=== PATIENT | female | born 1985 | race Caucasian/White ===

== ENCOUNTER 2025-06-27 07:14 | Emergency (ER) | payer OTHER, SELFPAY ==
--- OUTSIDE RECORDS SUMMARY | 2017-11-20 05:18 | XMS_ITS | Continuity of Care Document ---
Author Organization [facility] Address [address] [place] [id number] Phone Care Team Providers Care Traffic Supervisor Name Role Phone Unavailable Unavailable Unavailable Medications Medication Instructions Dosage Effective Dates (start - stop) Status Comments ropinirole 2 mg tablet take 1 tablet by oral route every day 2 MG - Active Effexor XR 150 mg capsule,extended release take 1 capsule by oral route every day 150 MG - Active Eliquis 5 mg tablet take 1 tablet by ora l route 2 times every day 5 MG - Active Vistaril 25 mg capsule take 1 capsule by oral route every day at bedtime as needed - Active Seroquel 50 mg tablet take 1 tablet by o ral route every day 50 MG - Active prazosin 1 mg capsule take 1 capsule by oral route 2 times every day 1 MG - Active melatonin 3 mg tablet Take 1 tablet by m outh at bedtime as needed - Active loratadine 10 mg tablet take 1 tablet by oral route every day as needed - Active Advance Directives Directive Yes / No Effective Date File Name No Information Encounters Encounter Description Practice Location Reason(s) For Visit Diagnoses Date Provider [facility], [address] [place] [address], [id number] , tel:[phone] [facility] No Information [phone] No Information [facility], [address] [place] [address], [id number] , tel: [phone] [facility] Opioid dependence, uncomplicated 8 No Information [facility], [address] [place] [address], [id number] , [place] tel:[phone] [facility] Letter for where she lives (chief complaint)n erve pain (chief complaint)r efills (chief complaint)A llergies (chief complaint) Bipolar depressionHx pulmonary embolismNeuropathyTobacco abuseVaginal dischargeNon-seasonal allergic rhinitis due to other allergic triggerAdjustment insomnia 8 Christopher Hernandez. [address] [id number] [place], [place], [address], [place]. tel:[phone] [facility], [address] [place] [address], [id number] , [place] tel:[phone] [facility] follow up lab (chief complaint) Body mass index (BMI) 23.0-23.9, adultPositive RPR testVaginal dischargeTobacco abuseNeuropathy 7 Christopher Hernandez. [address] [id number] [place], [place], [address], [place]. tel:[phone] [facility], [address] [place] [address], [id number] , [place] tel:[phone] [facility] Opioid dependence, uncomplicated 7 No Information [facility], [address] [place] [address], [id number] , [place] tel:[phone] [facility] refill for effexor and ropinirole (chief complaint)l ab follow up (chief complaint) Opioid dependence, uncomplicatedBody mass index (BMI) 23.0-23.9, adultPositive RPR testBipolar depression 7 Christopher Hernandez. [address] [id number] [place], [place], [address], [place]. tel:[phone], [id number] , tel: [phone] [facility] Opioid use disorder, severe No Information [facility], [address], [place], [id number] , [place] tel: [phone] [facility] establish provider/ne eds meds refilled /INR (chief complaint) Body mass index (BMI) 22.0-22.9, adultHeroin abuseExposure to STDVaginal dischargeFlu vaccine needHx of deep venous thrombosisHx pulmonary embolismBipolar depression Christopheryosvany Gonzales. [address] [id number] [place], [place], [address], [place]. tel:[phone] Family History Family Member Type Diagnosis Age At Onset No Information Immunizations Vaccine Date Status Comments Influenza, injectable, quadrivalent, preservative free, 3 yrs or older not administered Source: New Immuniz ation Record Payers Payer name Insurance type Covered republican ID Authoriza tion(s) Formerly [facility] [id number] [facility] [id number] [facility] [id number] [facility] [id number] Social History Type Description Quantity Date Captured Comments Alcohol Use Details Unknown Caffeine Use Details Unknown Tobacco Use Status Smoking Status No Information Sex Female Sexual Orientation Bisexual Chief Complaint And Reason For Visit No Information Plan Of Treatment Date Type Action Status Goal Dietary management education , guidance, and counseling completed Goal Tobacco cessation counseling completed Goal Dietary management education , guidance, and counseling completed Goal Tobacco cessation counseling completed Goal Tobacco cessation counseling completed Referral Ordered: EMG Needle 1 Extremity Appointment date/timeframe: 09/19/2017 [id number] Ordered: Referrals: Hematology. Consult Appointment date/timeframe: 08/29/2017 ordered History Of Present Illness Encounter Date Complaint History Of Prese nt Illness Letter for where she lives The s ymptoms are reported as being . The symptoms occur . tter regarding medications sent with patient refills The symptoms are reported as being . The symptoms occur . meds refilled Allergies The patient pres ents with post nasal drainage. Symptoms are constant, mild and unchanged. The symptoms are felt to be related to exposure to dust and season change. There is no history of asthma, eczema and allergy desensitization. The allergic symptoms are worsened by cold air, dust and heat. Denies relieving factors. The patient is also experiencing cough, nasal congestion, nasal drainage, post nasal drainage and sneezing. The patient denies chest tightness, coryza, dizziness, ear pain, headache, hoarseness, nausea, pharyngitis, reddened eyes, reflux, sinus infections, sinus pain, tearing and urticaria. nerve pain The symptoms are reported as being . The symptoms occur . emg ordered follow up lab The symptoms are reported as being . The symptoms occur . RPR 1:1 but reflex negativeNeuropathy/nerve related pain- EMGBacterial Vaginosis lab follow up The symptoms are reported as being . The symptoms occur . Discussed labs and she is aware of hep cWas not aware of possible syphilis exposure, will order Treponema Pallidum to confirm, DW Dr Campa [facility] refill for effexor and ropinirol e The symptoms are reported as being . The symptoms occur . Meds refilled establish provider/n eeds meds refilled /INR The symptoms are reported as being . The symptoms occur . [facility] Heroin abuseFilter Placed due to DVTs and hx PE/dvt after [id number] is the patients only hx of dvt-This was almost 2 years agoWas on Coumadin but has missed some doses, states she was on 15 mg coumadinMissed Coumadin Saturday and SaturdayWas supposed to have FU Ct Per patient and missed it in rehab Instructions Date Instruction Additional Infor belle Dietary management e ducation, guidance, and counseling Related to Body mass index (BMI) 23.0-23.9, adult Giving encouragement to exercise Related to Body mass index (BMI) 23.0-23.9, adult Dietary management e ducation, guidance, and counseling Related to Body mass index (BMI) 23.0-23.9, adult Giving encouragement to exercise Related to Body mass index (BMI) 23.0-23.9, adult Assessments Type Assessment Date No Information
--- OUTSIDE RECORDS SUMMARY | 2023-08-29 19:00 | XMS_ITS | Continuity of Care Document ---
Author Organization [facility] Address [address] [place] [address] Phone Care Team Providers Care Interactive Designer Name Role Phone Johanny Briceño Unavailable Unavailable Allergies, Adverse Reactions, Alerts Substance Reaction Status Criticality No Known Allergies Active No Inform ation Medications Medication Instructions Dosage Effective Dates (start - stop) Status Comments quetiapine 50 mg tablet take 1 tablet by oral route every bedtime 50 MG - Active gabapentin 400 mg capsule take 1 capsule by oral route 4 times every day 400 MG - Active Procedures Procedure Date Acute Detox Field Support Technician Acute Detox Field Support Technician Acute Detox Field Support Technician DRUG TEST PRSMV DIR OPT OBS ROUTINE VENIPUNCTURE Acute Detox Field Support Technician DRUG TEST PRSMV DIR OPT OBS URINE TEST ASSAY OF BREATH ETHANOL Acute Detox Field Support Technician Acute Detox Field Support Technician Acute Detox Field Support Technician Acute Detox Field Support Technician Acute Detox Field Support Technician Advance Directives Directive Yes / No Effective Date File Name No Information Encounters Encounter Description Practice Location Reason(s) For Visit Diagnoses Date Provider Providers Copied on Encounter [facility], [address], [place], [id number], [place] tel:[phone] [facility] No Information Navarro Orlando. [address] [place] [address], [id number], [place]. tel:[phone] [facility], [address] [place] [address], [id number], [place] tel:[phone] [facility] No Information Klidas Johanny. [address], [place], [id number], [place]. tel:[phone] [facility], [address], [place], [id number], [place] tel:[phone] [facility] No Information Klidas Johanny. [address], [place], [id number], [place]. tel:[phone] [facility], [address], [place], [id number], [place] tel:[phone] [facility] No Information Klidas Johanny. [address], [place], [id number], [place]. tel:[phone] [facility], [address], [place], [id number], [place] tel:[phone] [facility] Opioid dependence with withdrawal Pavlock DO Max. [address], [place], [id number], [place]. tel:[phone] [facility], [address], [place], [id number], [place] tel:[phone] [facility] Opioid dependence with withdrawal Pavlock DO Max. [address], [place], [id number], [place]. tel:[phone] [facility], [address], [place], [id number], [place] tel:[phone] [facility] Opioid dependence with withdrawal Pavlock DO Max. [address], [place], [id number], [place]. tel:[phone] [facility], [address], [place], [id number], [place] tel:[phone] [facility] heroin dependence (chief complaint) Opioid dependence with withdrawal Sebastian Echevarria. [address], [place], [id number], [place]. tel:[phone] [facility], [address], [place], [id number], [place] tel:[phone] [facility] Opioid dependence with withdrawal Pavlock DO Max. [address], [place], [id number], [place]. tel:[phone] [facility], [address], [place], [id number], [place] tel:[phone] [facility] Opioid dependence with withdrawal Pavlock DO Max. [address], [place], [id number], [place]. tel:[phone] [facility], [address] [place] [address], [id number], [place] tel:[phone] [facility] Opioid dependence with withdrawal Pavlock DO Max. [address], [place], [id number], [place]. tel:[phone] [facility], [address], [place], [id number], [place] tel:[phone] [facility] No Information Pavlock DO Max. [address] [place] [address], [id number], . tel:[phone] Family History Family Member Type Diagnosis Age At Onset No Information Payers Payer name Insurance type Covered libertarian ID Authorfidelinaa timeghan(s) [employer] [id number] Social History Type Description Quantity Date Captured Comments Sex Female Smoking Status No Information Sexual Orientation Straight or heterosexual Gender Identity Female Chief Complaint And Reason For Visit No Information Reason For Referral Reason For Referral No Information History Of Present Illness Encounter Date Complaint History Of Prese nt Illness heroin dependence 34 year old fe male checked in to detox yesterday and reports last using heroin yesterday. She typically injects 1g/day and has been using opiates for 12 years. She has attended detox 5 times prior with the last being 2 months ago.surgical hx- c-secallergies- nonemeds- jonathan, seroqueltobacco- 1/2 ppdalcohol- noneplans upon completing detox- inpatient Functional Status Date Functional Assessmen t No Information Instructions Date Instruction Additional Infor belle Encourage PO fluids - Related to Opioid dependence with withdrawal Assessments Type Assessment Date No Information Patient Care Teams Name Effective Dates (start - stop) Status Members No Information
[2025-06-27 07:22] VITALS: BP 106/69; PULSE 120; TEMP 37.2; O2SAT 95; BMI 23.0
--- NOTE | 2025-06-27 07:35 | ED.GENADUL1 ---
HPI HPI - General Adult General Chief complaint: Fever Stated complaint: FEVER, CHILLS, SORE THROAT Time Seen by Provider: 06/27/25 07:21 Source: patient Mode of arrival: walk-in History of Present Illness HPI narrative: cc - fever and flulke symptoms Yesterday the patient developed fever, chills, body aches. Temp improved after taking tylenol - last dose was this morning. Related Data Home Medications ?Medication ?Instructions ?Recorded ?Confirmed buprenorphine 2 mg-naloxone 0.5 mg 2 film buccal DAILY 06/27/25 06/27/25 sublingual film (Suboxone) gabapentin 800 mg tablet 800 mg PO TID 06/27/25 06/27/25 Previous Rx's ?Medication ?Instructions ?Recorded amoxicillin 875 mg tablet 875 mg PO BID 10 days #20 tabs 06/27/25 Allergies Allergy/AdvReac Type Severity Reaction Status Date / Time No Known Drug Allergies Allergy Verified 06/27/25 07:21 Opioid HPI Opioid Management Most Recent Opioid Data: Last Pain Scale 7 Today, 07:30 PFSH PFSH Social History Little interest or pleasure in doing things: not at all Feeling down, depressed, or hopeless: not at all Exam Narrative Exam Narrative: Nurses notes and vital signs reviewed and patient is not hypoxic. afebrile General: Well-appearing and in no apparent distress. Skin: Warm, dry, no pallor noted. No rash. Head: Normocephalic, atraumatic. Neck: Supple, non-tender. Tender anterior upper cervical lymphadenopathy. No meningismus. Eye: Pupils are equal, round and EOMI. No scleral icterus. Ears, Nose, Mouth, and Throat: TM are clear, no nasal mucosal hypertrophy. Moderate posterior oropharynx erythema with some exudate, uvula is mid-line. Oral mucosa is moist Cardiovascular: Tachycardia. Respiratory: No accessory muscle use or respiratory distress. Lungs are clear to auscultation, no wheezing, rales or rhonchi Musculoskeletal: normal ROM GI: Abdomen is soft, non-distended. Normal bowel sounds. No tenderness to palpation. No rebound, guarding, or rigidity noted. Neurological: A&O x4. No cranial nerve dysfunction observed. No truncal ataxia. Moves all extremities. Sensation intact. Psychiatric: Cooperative and interactive. Normal mood and affect. Constitutional Vital Signs, click to edit/add: Last Vital Signs Temp 98.9 F 06/27/25 07:22 Pulse 120 H 06/27/25 07:22 Resp 18 06/27/25 07:22 BP 106/69 06/27/25 07:22 Pulse Ox 95 06/27/25 07:22 O2 Del Method Room Air 06/27/25 07:22 Course Vital Signs Vital signs: Vital Signs Temperature 98.9 F 06/27/25 07:22 Pulse Rate 120 H 06/27/25 07:22 Respiratory Rate 18 06/27/25 07:22 Blood Pressure 106/69 06/27/25 07:22 Pulse Oximetry 95 06/27/25 07:22 Oxygen Delivery Method Room Air 06/27/25 07:22 Temperature 98.9 F 06/27/25 07:22 Pulse Rate 120 H 06/27/25 07:22 Respiratory Rate 18 06/27/25 07:22 Blood Pressure 106/69 06/27/25 07:22 Pulse Oximetry 95 06/27/25 07:22 Oxygen Delivery Method Room Air 06/27/25 07:22 Medical Decision Making MDM Narrative Medical decision making narrative: Swabs obtained for strep, influenza and COVID. Pt tested positive for strep pharyngitis. She was informed of result and discharged home with prescription for amoxicillin. She was instructed to take tylenol and motrin for pain. PCP follow up as needed or ED return if she worsens Lab Data Lab results reviewed: Yes I reviewed the patient's lab results Labs: Lab Results 06/27/25 Range/Units 07:28 Influenza Type A Ag Negative Influenza Type B Ag Negative SARS-CoV-2 Ag (CV2AG) Negative (NEGATIVE) Streptococcus Screen Positive A Discharge Plan Discharge Chief Complaint: Fever Clinical Impression: Strep pharyngitis Patient Disposition: Home, Self-Care Time of Disposition Decision: 07:46 Prescriptions / Home Meds: New amoxicillin 875 mg tablet 875 mg PO BID 10 Days Qty: 20 0RF No Action buprenorphine-naloxone [Suboxone] 2-0.5 mg film 2 film buccal DAILY Rx Instructions: place 1 strip/tab under (each) side of tongue gabapentin 800 mg tablet 800 mg PO TID Print Language: Hebrew Instructions: Strep Throat (ED) Discharge Date/Time: 06/27/25 07:56
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
--- OUTSIDE RECORDS SUMMARY | 2025-06-27 07:50 | XMS_ITS | Clinical Summary ---
Author Organization [employer] s tem Address [id number] [place] [address] Care Team Providers Care Project Eng Name Role Phone Akira Silviano Primary Care Provider [phone] Allergies No known active allergies Medications MedicationSigDispense QuantityRefillsLast FilledStart DateEnd DateStatus buprenorphine-naloxone (SUBOXONE) 8-2 mg per SL tablet Place 2 tablets under the tongue in the morning.Active cyclobenzaprine (FLEXERIL) 10 mg tablet Take 1 tablet (10 mg total) by mouth 2 (two) times a day as needed for muscle spasms.5Active dicyclomine (BENTYL) 20 mg tablet Take 1 tablet (20 mg total) by mouth every 6 (six) hours.5Active diphenhydrAMINE (BENADRYL) 25 mg capsule Take 1 capsule (25 mg total) by mouth every 6 (six) hours as needed.02/25/2025 Active diphenhydrAMINE (SOMINEX) 25 mg tablet Take 1 tablet (25 mg total) by mouth nightly as needed for sleep.03/13/2025 Active folic acid (FOLVITE) 1 mg tablet Take 1 tablet (1 mg total) by mouth in the morning and 1 tablet (1 mg total) before bedtime.5Active docusate sodium (COLACE) 100 mg capsule Take 1 capsule (100 mg total) by mouth 2 (two) times a day as needed for constipation.5Active gabapentin (NEURONTIN) 400 MG tablet Take 1 tablet (400 mg total) by mouth in the morning and 1 tablet (400 mg total) at noon and 1 tablet (400 mg total) in the evening and 1 tablet (400 mg total) before bedtime.5Active hydrOXYzine (ATARAX) 25 mg tablet Take 1 tablet (25 mg total) by mouth every 4 (four) hours as needed for itching. 03/13/2025tive ibuprofen (MOTRIN) 600 mg tablet Take 1 tablet (600 mg total) by mouth every 6 (six) hours as needed.03/13/2025 Active LORazepam (ATIVAN) 1 mg tablet Take 1 tablet (1 mg total) by mouth every 6 (six) hours as needed for anxiety. 03/15/2025tive lurasidone (LATUDA) 20 mg tablet Take 1 tablet (20 mg total) by mouth in the morning.03/15/2025tive melatonin 10 mg tablet extended release Take 10 mg by mouth nightly.03/13/2025tive mirtazapine (REMERON) 7.5 mg tablet Take 1 tablet (7.5 mg total) by mouth nightly.03/13/2025tive OLANZapine zydis (ZyPREXA) 5 mg disintegrating tablet Dissolve 1 tablet (5 mg total) on tongue nightly.03/13/2025tive ondansetron ODT (ZOFRAN ODT) 4 mg disintegrating tablet Dissolve 1 tablet (4 mg total) on tongue 3 (three) times a day as needed for nausea. TAKE 1 TABLET BY MOUTH 3 TIMES DAILY NEEDED FOR NAUSEA OR VOMITING 03/28/2025tive QUEtiapine (SEROquel) 50 mg tablet Take 2 tablets (100 mg total) by mouth nightly.02/25/2025tive sulfamethoxazole-trimethoprim (BACTRIM DS) 800-160 mg per tablet Take 1 tablet by mouth in the morning and 1 tablet before bedtime.03/13/2025 Active traZODone (DESYREL) 100 mg tablet Take 1 tablet (100 mg total) by mouth nightly.03/13/2025tive Active Problems ProblemNoted DateDiagnosed DateStrep ebcumabkstm84/07/2025Gastroesophageal reflux disease without vshhmrpadfq43/28/2023Hepatitis 07/05/2015 Encounters DateTypeDepartmentCare YwjeHwsdxbakmsm52/07/2025 8:17 AM EDT - 04/03/2025 12:00 PM EDTHospital Encounter [facility] [address] [place] [address] Elodia Barnett MD Pillai, Kanchan M, MD Strep pharyngitis (Primary Dx) Discharge Disposition: Left Against Medical Advice or Discontinued Care 04/01/2025Travelfrom Last 3 Months Immunizations ImmunizationAdministration DatesNext HesQYP12,06/21/1988,05/02/1988DTaP, Shvvjapgdec37/27/1989Hib (PRP-OMP)06/21/1989Influenza, Im Trivalent Preservative 07/04/2016Influenza, Injectable, Odsmolnxstot42/01/2016Influenza, Injectable, quadrivalent (PF)07/05/2015MMR01/05/2000,03/22/1989OPV1,06/21/1988, 05/02/1988Pneumococcal Chlvbotadtskwf35/08/5105Xlzh10/26/2016 Family History Medical HistoryRelationNameCommentsAlcohol abuseFatherAlcohol abuseMother RelationNameStatusCommentsFatherDeceasedMotherAlive Social History Tobacco UseTypesPacks/DayYears UsedDateSmoking Tobacco: FormerCigarettes Smokeless Tobacco: Former Tobacco Cessation:Counseling Given: Not Answered Alcohol UseStandard Drinks/WeekCommentsNever0 (1 standard drink = 0.6 oz pure alcohol)[facility] UtilitiesAnswerDate RecordedIn the past 12 months has the [employer], gas, oil, or water [employer] threatened to shut off services in your home?No 04/02/2025UDIT-CAnswerDate RecordedQ1: How often do you have a drink containing alcohol?Never04/02/2025Q2: How many drinks containing alcohol do you have on a typical day when you are drinking?Patient does not drink04/02/2025Q3: How often do you have six or more drinks on one occasion?Never04/02/2025PRAPARE - TransportationAnswerDate RecordedIn the past 12 months, has lack of transportation kept you from medical appointments or from getting medications? Yes04/02/2025In the past 12 months, has lack of transportation kept you from meetings, work, or from getting things needed for daily living?Yes04/02/2025 Housing InstabilityAnswerDate RecordedAre you worried or concerned that in the next two months you may not have stable housing that you own, rent or stay in as a part of a household?No04/02/2025Hunger ScreeningAnswerDate RecordedWithin the past 12 months we worried whether our food would run out before we got money to buy more.Never True04/02/2025Within the past 12 months the food we bought just didn't last and we didn't have money to get more.Never True04/02/2025 CommentsUnknownSex and Gender InformationValueDate RecordedSex Assigned at Not on fileLegal VevRdoptz03/07/2025 8:14 AM EDTGender IdentityNot on fileSexual OrientationNot on file Last Filed Vital Signs Vital SignReadingTime TakenCommentsBlood Mygzntqg451/8008 8:42 AM EDT Artwf427204/03/2025 8:42 AM ERDQqrtebpehae22.6 ??C (97.8 ??F)04/03/2025 8:42 AM EDTRespiratory Ijev488304/03/2025 8:42 AM EDTOxygen Hsqfoxqzdr38%04/03/2025 8:42 AM EDTInhaled Oxygen Concentration--Kzvfqi31 kg (141 lb 1.5 oz)04/02/2025 6:25 AM DJYRksfoq784 cm (5' 3 )04/01/2025 2:27 PM EDTBody Mass Index24.9904/01/2025 2:27 PM EDT Plan of Treatment Health MaintenanceDue DateLast DoneCommentsDepression Jfxovgmuf26/05/2000Pap Smear11/28/2008Influenza Hhqiypq49/01/64191609/03/2015, 06/26/2016, 07/05/2015 DTaP,Tdap and Td Vaccines (6 - Td or Tdap)6010/21/2015, 06/21/1989, 08/24/1988, Additional history existsAdult BMI Pkdqzgkjr02 Tobacco Obmtuqdjh82 Goals GoalPatient Goal TypeAssociated ProblemsRecent ProgressPatient-Stated?Author Return to sober living [place] LSW Note: Evaluation of progress towards goal: Pt's goal is to return to sober living at discharge. Pt declined discharge needs at this time. - MARLENE BROWN 04/01/25 4:23 PM Medical Devices Not on file Procedures Procedure NamePriorityDate/TimeAssociated DiagnosisCommentsECHO COMPLETE WO HXTBOUMVXbhglwu92/08/2025 12:[address] NECK SOFT TISSUE W KUXZLigkbqq24/08/2025 11:01 AM EDT CBC WITH AUTO GJSWEVMJGYANLjklrxe77/08/2025 6:35 AM EDT UOBYCOKFYElhbbvv25/08/2025 6:35 AM EDT COMPREHENSIVE METABOLIC GBLLIGlhljna94/08/2025 6:35 AM EDT XR CHEST 2 TLJJnbosxs94/08/2025 6:15 AM EDT POCT RAPID STREP CRdlhjud78/07/2025 1:45 PM EDT XR CHEST 1 AKGNBZ8304/01/2025 12:39 PM EDT DRUG SCREEN, URINEAdd-On04/01/2025 11:38 AM EDT ER EXTRA BYNVIGGYT43/07/2025 11:38 AM EDT EXTRA TUBES PST YRFIantfjs69/07/2025 10:43 AM EDT SST JGQLZKJ2604/01/2025 10:43 AM EDT BLUE INZBRJZ3504/01/2025 10:43 AM EDT EXTRA ALIJCQvcmmri13/07/2025 10:43 AM EDT RAINBOW IJWSHMJB74/07/2025 10:43 AM EDT NDWKZCXRSJJSCOYZN59/07/2025 10:43 AM EDT COMPREHENSIVE METABOLIC PIOGAMGOY68/07/2025 10:43 AM EDT SERUM YBZMTHAXYRASK90/07/2025 10:40 AM EDT CBC WITH AUTO RBODZWMAMUHVSIGF58/07/2025 10:40 AM EDT LACTATE W/ DHFVLIBHCP87/07/2025 10:40 AM EDT BLOOD CULTURE IDENTIFICATION WHQBLOzvkgbj99/07/2025 10:40 AM EDT BLOOD XSRKPQAIJMG07/07/2025 10:40 AM EDT BLOOD TLOQUCXNGAT43/07/2025 10:40 AM EDT SARS/FLU A+B/RSV BY NAAT/MOLECULAR (M4RT COLLECTION TUBE)STAT04/01/2025 9:32 AM EDT from Last 3 Months Results * Echo complete W/O contrast (04/02/2025 12:45 PM EDT)ComponentValueRef Range Test MethodAnalysis TimePerformed AtPathologist SignatureLVOT stroke volume 63.82hfNSANADTXH0290 - 44 %XCELERALVIDd4.753.96 - 5.50 cmXCELERALVIDs3.232.35 - 3.56 cmXCELERAIVS0.720.6 - 1.1 cmXCELERAPW0.980.6 - 1.1 cmXCELERALVOT diameter1.59bnCDJSGCNTIW51.80cm/sXCELERAMV TDI E' (medial)9.03cm/sXCELERAE/A ratio1.27XCELERAE wave deceleration jrxa791.00msecXCELERAMV Peak E Vel78.40 cm/sXCELERAMV Peak A Vel61.70cm/sXCELERALA size2.90cmXCELERAAortic root2.80cm XCELERAAV peak wyd354.00cm/sXCELERALVOT peak vel1.21m/sXCELERAAV VTI28.90cm XCELERALVOT peak VTI22.50cmXCELERAAV mean gradient6.00mmHgXCELERAAV peak gradient9.61mmHgXCELERAAV valve area2.21XCELERAValve area - Index1.3XCELERAMV pressure 1/2 time46.00msXCELERAMV valve area p 1/2 method4.48sg0EUIPRRXMM Peak Vel2.5m/sXCELERATR peak eijrhphf67.80mmHgXCELERAPV peak gradient4.41mmHg XCELERALV ESV A4C24.40mLXCELERALV RWT 2D41.05XCELERAAV Velocity Ratio0.78 XCELERALeft Ventricle Tvlb161.640954226961007eLFXPLTWFkpeemsnqpunklhs Septum Diastolic Thickness by 2D7.17cmXCELERALV ESV A2C35.12mLXCELERALA Volume Index 20.8mL/d5UUSNOYNJMWVOO1.00MQGNKQUFKUSUR5.17XCELERAEnergy loss index10.28 XCELERAAnatomical RegionLateralityModalityChestN/AUltrasoundSpecimen (Source) Anatomical Location / LateralityCollection Method / VolumeCollection Time Received Time Narrative 04/02/2025 6:56 PM EDT The left ventricle appears normal in size normal LV wall thickness, no obvious wall motion abnormality noted Normal LV systolic function, ejection fraction 55-60% The right ventricle appears normal in size and function The left and right atrium appears normal in size The aortic valve structure is normal no regurgitation no stenosis Mitral valve structure is normal trace regurgitation no stenosis Tricuspid valve structure is normal trace regurgitation no stenosis Normal aortic root dimensions IVC not well visualized No significant pericardial effusion seen No obvious intracardiac mass or shunt noted Left Ventricle Left ventricle appears normal in size. Wall thickness is normal. Systolic function is normal with an ejection fraction of 55-60%. No segmental wall motion abnormalities. Normal diastolic function is present. Lateral E' is 15.80 cm/s. Medial E' is 9.03 cm/s. Right Ventricle Right ventricular size appears normal. Systolic function is normal. Left Atrium Left atrium is normal in size. The left atrial volume index is 20.8 mL/m2. Right Atrium Right atrium is normal in size. IVC/SVC IVC is not visualized. Mitral Valve The leaflets are mildly thickened. There is trace regurgitation. There is no evidence of mitral valve stenosis. No obvious vegetation present on the mitral valve. Tricuspid Valve Tricuspid valve appears to be normal. There is trace regurgitation. There is no evidence of tricuspid valve stenosis. No obvious vegetation present on the tricuspid valve. Aortic Valve Probable trileaflet aortic valve. The leaflets exhibit normal excursion. There is no regurgitation or stenosis. No obvious vegetation present on the aortic valve. Pulmonic Valve Pulmonic valve structure is grossly normal. There is no regurgitation or stenosis. The peak gradient is 4.41 mmHg. No obvious vegetation present on the pulmonic valve. Ascending Aorta The aortic root is normal in size. Pericardium There is no pericardial effusion. Study Details A complete echo was performed using complete 2D. Patient asked to end exam prior to completion. Dueto incomplete study, consider [place] to further evaluate for endocarditis if clinically indicated. Wall Scoring Baseline Score Index: 1.00 The left ventricular wall motion is normal. Authorizing ProviderResult TypeResult StatusSerenity Yee MOTEL FOOD SERVICE SUPERVISOR-CNPCV ECHO ORDERABLESFinal Result * CT neck soft tissue with contrast (04/02/2025 11:01 AM EDT)Anatomical Region LateralityModalityNeuro, Neck, Neuro CoveraN/AComputed TomographySpecimen (Source)Anatomical Location / LateralityCollection Method / VolumeCollection TimeReceived Time04/02/2025 11:07 AM EDT Narrative 04/02/2025 11:[address] NECK SOFT TISSUE W CONT INDICATION: strep pharyngitis, bacteremia, sepsis. TECHNIQUE: CT of the neck performed following the uneventful administration of 100 mL Omnipaque-300intravenous contrast. Multiplanar reformats were created and reviewed. All CT scans at this facility use dose modulation, iterative reconstruction, and/or weight based dosing when appropriate to reduce radiation dose to as low as reasonably achievable. COMPARISON: None FINDINGS: Head: Visualized intracranial compartment is unremarkable. Sinus/Orbit/Dentition: Paranasal sinuses, middle ears and mastoids are well aerated. Unremarkable orbits. No deep caries or periapical lucencies. Mucosal surface: Enlarged nasopharyngeal adenoids, palatine, lingual tonsils without collection. Glands: Normal appearance of the submandibular, sublingual, and parotid glands. Piggyback Clerk/Parapharyngeal: Muscles of mastication are unremarkable. Parapharyngeal fat is not displaced. Retropharyngeal: No retropharyngeal fluid. Nodes: No enlarged lymph nodes. Larynx: Symmetric vocal cords. No focal mass within the supraglottic, glottic or subglottic larynx.Thyroid, cricoid, arytenoid cartilages are unremarkable. Hyoid is within normal limits. Thyroid: Within normal limits. Vascular: Normal vascular enhancement without high grade arterial narrowing. Normal venous opacification. Osseous: No suspicious osseous lesion. Soft tissues: No focal soft tissue mass or skin lesion. Lungs: Right upper lobe groundglass patchy opacities. IMPRESSION: * ??Right upper lobe pneumonia. * ??Enlarged nasopharyngeal adenoids, palatine, lingual tonsils without collection. Finalized by Alen Del Castillo on 04/02/2025 11:10 AM Procedure Note Alen Del Castillo MD - 04/02/2025 CT NECK SOFT TISSUE W CONT INDICATION: strep pharyngitis, bacteremia, sepsis. TECHNIQUE: CT of the neck performed following the uneventfuladministration of 100 mL Omnipaque-300 intravenous contrast. Multiplanarreformats were created and reviewed. All CT scans at this facility usedose modulation, iterative reconstruction, and/or weight based dosing whenappropriate to reduce radiation dose to as low as reasonably achievable. COMPARISON: None FINDINGS: Head: Visualized intracranial compartment is unremarkable. Sinus/Orbit/Dentition: Paranasal sinuses, middle ears and mastoids arewell aerated. Unremarkable orbits. No deep caries or periapicallucencies. Mucosal surface: Enlarged nasopharyngeal adenoids, palatine, lingualtonsils without collection. Glands: Normal appearance of the submandibular, sublingual, and parotidglands. Piggyback Clerk/Parapharyngeal: Muscles of mastication are unremarkable. Parapharyngeal fat is not displaced. Retropharyngeal: No retropharyngeal fluid. Nodes: No enlarged lymph nodes. Larynx: Symmetric vocal cords. No focal mass within the supraglottic,glottic or subglottic larynx. Thyroid, cricoid, arytenoid cartilages areunremarkable. Hyoid is within normal limits. Thyroid: Within normal limits. Vascular: Normal vascular enhancement without high grade arterialnarrowing. Normal venous opacification. Osseous: No suspicious osseous lesion. Soft tissues: No focal soft tissue mass or skin lesion. Lungs: Right upper lobe groundglass patchy opacities. IMPRESSION: * Right upper lobe pneumonia. * Enlarged nasopharyngeal adenoids, palatine, lingual tonsils without collection. Finalized by Alen Del Castillo on 04/02/2025 11:10 AM Authorizing ProviderResult TypeResult StatusSerenity Yee MOTEL FOOD SERVICE SUPERVISOR-[facility]G [facility] ORDERABLESFinal Result * (ABNORMAL) CBC auto differential (04/02/2025 6:35 AM EDT) Only the most recent of2 resultswithin the time period is included. ComponentValueRef RangeTest MethodAnalysis TimePerformed AtPathologist Signature WBC15.4(H)4 - 11 x10E9/L04/02/2025 6:54 AM [facility]BC Count3.77(L)3.8 - 5.2 X10E12/L04/02/2025 6:54 AM [facility] Aulnsvxpro46.4(L)11.7 - 15.5 g/dL04/02/2025 6:54 AM [facility]ENTERHematocrit33.2(L)35 - 47 %04/02/2025 6:54 AM [facility]ENTERMCV8880 - 100 fL04/02/2025 6:54 AM [facility]ENTERMCH30.2 27 - 34 pg04/02/2025 6:54 AM [facility]ENTERMCHC34.332 - 36 g/dL 04/02/2025 6:54 AM [facility]ENTERRDW13.211.5 - 15 %04/02/2025 6:54 AM [facility]ENTERPlatelet Qnbal676961 - 450 X10E9/L 04/02/2025 6:54 AM [facility]OS[facility]ITALMPV7.87 - 12 fL04/02/2025 6:54 AM [facility] HOSPITALNeutrophils %74.7%04/02/2025 6:54 AM [facility]OSPITALLymphocytes %15.3%04/02/2025 6:54 AM [facility]OSPITALMonocytes %8.3%04/02/2025 6:54 AM [facility]OS[facility]ITALEosinophils %1.1%04/02/2025 6:54 AM [facility] Basophils %0.6%04/02/2025 6:54 AM [facility]ENTERNeutrophils Absolute (A)11.5(H)1.5 - 6.6 10*3/uL04/02/2025 6:54 AM [facility] HOSPITALLymphocytes Absolute2.31.0 - 3.5 10*3/04/02/2025 6:54 AM [facility] HOSPITALMonocytes Absolute1.3(H)0.0 - 0.9 10*3/uL04/02/2025 6:54 AM [facility]OSPITALEosinophils Absolute0.20.0 - 0.4 10*3/uL04/02/2025 6:54 AM [facility] HOSPITALBasophils Absolute0.10.0 - 0.2 10*3/uL 04/02/2025 6:54 AM [facility] CENTERDifferential TypeAUTOMATED MGJVHLIHWEZG10/08/2025 6:54 AM [facility]USpecimen (Source) Anatomical Location / LateralityCollection Method / VolumeCollection Time Received TimeBloodVenous blood / UnknownVenipuncture / Aufafag0704/02/2025 6:35 AM EDT04/02/2025 6:47 AM EDT Narrative Authorizing ProviderResult TypeResult StatusSakina Huerta MOTEL FOOD SERVICE SUPERVISOR-CNPLAB BLOOD ORDERABLESFinal ResultPerforming OrganizationAddressCity/State/ZIP CodePhone Number [facility] [address] [place] [address], [place] * (ABNORMAL) Magnesium (04/02/2025 6:35 AM EDT)ComponentValueRef RangeTest MethodAnalysis TimePerformed AtPathologist SignatureMAGNESIUM1.5(L)1.8 - 2.6 mg/dL04/02/2025 7:06 AM [facility]USpecimen (Source) Anatomical Location / LateralityCollection Method / VolumeCollection Time Received TimeBloodVenous blood / UnknownVenipuncture / Kpfcjmp8704/02/2025 6:35 AM EDT04/02/2025 6:47 AM EDT Narrative Authorizing ProviderResult TypeResult StatusSakina Huerta MOTEL FOOD SERVICE SUPERVISOR-CNPLAB BLOOD ORDERABLESFinal ResultPerforming OrganizationAddressCity/State/ZIP CodePhone Number [facility] [address] [place] [address], [place] * (ABNORMAL) Comprehensive metabolic panel (04/02/2025 6:35 AM EDT) Only the most recent of2 resultswithin the time period is included. ComponentValueRef RangeTest MethodAnalysis TimePerformed AtPathologist Signature DLHPBK982846 - 146 mmol/L04/02/2025 7:06 AM [facility] POTASSIUM3.83.5 - 5.0 mmol/L04/02/2025 7:06 AM [facility] WADMNWLS23157 - 109 mmol/L04/02/2025 7:06 AM [facility] CARBON MVJSPPH3260 - 32 mmol/L04/02/2025 7:06 AM [facility] ANION GAP95 - 15 mmol/L04/02/2025 7:06 AM [facility]ENTERBLOOD UREA WQWUTBGZ73 - 23 mg/dL04/02/2025 7:06 AM [facility] CREATININE0.540.40 - 1.00 mg/dL04/02/2025 7:06 AM [facility] Comment:METHOD TRACEABLE TO IDMS KBRIAHDLAMKSRFW2757 - 99 mg/dL04/02/2025 7:06 AM [facility]ENTERCALCIUM8.58.5 - 10.5 mg/dL04/02/2025 7:06 AM [facility] CENTERTOTAL PROTEIN6.96.0 - 8.0 g/dL04/02/2025 7:06 AM [facility] CENTERALBUMIN3.0(L)3.2 - 5.3 g/dL04/02/2025 7:06 AM EDT [facility]ENTERALKALINE POODTXEEBEP0638 - 130 U/L04/02/2025 7:06 AM [facility]ENTERAST15<=41 U/L04/02/2025 7:06 AM [facility]ENTERALT14<=31 U/L04/02/2025 7:06 AM [facility] BILIRUBIN,TOTAL0.60.3 - 1.2 mg/dL04/02/2025 7:06 AM [facility] CENTEREGFR Non-Race Dependent>90>=60 ml/min/1.73sq.m004/02/2025 7:06 AM [facility]ENTERComment: eGFR not reported due to non-numeric value for Creatinine. Reported eGFR is based on the CKD-EPI 2020 equation that does not use a race coefficient. Specimen (Source)Anatomical Location / LateralityCollection Method / Volume Collection TimeReceived TimeBloodVenous blood / UnknownVenipuncture / Unknown 04/02/2025 6:35 AM EDT04/02/2025 6:47 AM EDT Narrative Authorizing ProviderResult TypeResult StatusSakina Huerta MOTEL FOOD SERVICE SUPERVISOR-CNPLAB BLOOD ORDERABLESFinal ResultPerforming OrganizationAddressCity/State/ZIP CodePhone Number [facility] [address] [place] [address], * X-ray chest 2 views (04/02/2025 6:15 AM EDT)Anatomical RegionLaterality ModalityBody, ChestN/AComputed RadiographySpecimen (Source)Anatomical Location / LateralityCollection Method / VolumeCollection TimeReceived Time04/02/2025 6:37 AM EDT Narrative 04/02/2025 9:46 AM EDT XR CHEST 2 VWS HISTORY: Pneumonia COMPARISON: 04/01/2025 FINDINGS: PA and lateral views were obtained. The cardiomediastinal silhouette is within normal limits. ??No pneumothorax or pleural effusion. ??Persistence of asymmetric opacity in the right middle lobe. Right lower lobe clear. IMPRESSION: Asymmetric opacity in the right middle lobe, likely pneumonia. Mildly progressed compared to prior. Approved by Shabana Lopez MD ??on 04/02/2025 6:37 AM Joshua Copeland have personally reviewed the image(s) and agree with and/or edited the report Finalized by Joshua Lo on 04/02/2025 9:46 AM Procedure Note Joshua Lo MD - 04/02/2025 XR CHEST 2 VWS HISTORY: Pneumonia COMPARISON: 04/01/2025 FINDINGS: PA and lateral views were obtained. The cardiomediastinal silhouette is within normal limits. No pneumothoraxor pleural effusion. Persistence of asymmetric opacity in the rightmiddle lobe. Right lower lobe clear. IMPRESSION: Asymmetric opacity in the right middle lobe, likely pneumonia. Mildlyprogressed compared to prior. Approved by Shabana Lopez MD on 04/02/2025 6:37 AM Joshua Copeland have personally reviewed the image(s) and agree withand/or edited the report Finalized by Joshua Lo on 04/02/2025 9:46 AM Authorizing ProviderResult TypeResult StatusHanson Huerta MOTEL FOOD SERVICE SUPERVISOR-CNPIMG DIAGNOSTIC IMAGING ORDERABLESFinal Result * (ABNORMAL) POCT rapid strep A (04/01/2025 1:45 PM EDT)ComponentValueRef Range Test MethodAnalysis TimePerformed AtPathologist SignaturePOC Rapid Strep ScreenPositive(A)Okzztwyb87/07/2025 1:45 PM [facility]TBCH[facility] Specimen (Source)Anatomical Location / LateralityCollection Method / Volume Collection TimeReceived Time04/01/2025 1:45 PM EDT04/01/2025 1:45 PM EDT Narrative Authorizing ProviderResult TypeResult StatusStacy Dybas MDPOINT OF CARE TEST ORDERABLESFinal ResultPerforming OrganizationAddressCity/State/ZIP CodePhone Number [facility] [address] [place] [address], * X-ray chest 1 view (04/01/2025 12:39 PM EDT)Anatomical RegionLaterality ModalityBody, ChestN/AComputed RadiographySpecimen (Source)Anatomical Location / LateralityCollection Method / VolumeCollection TimeReceived Time04/01/2025 12:48 PM EDT Narrative 04/01/2025 12:49 PM EDT XR CHEST 1 VW: 04/01/2025 12:38 PM Clinical: ??Fever and tachycardia Upright portable chest obtained. No comparison. Ill-defined asymmetric opacity overlying the right mid hemithorax. Heart size is normal. No large effusion or pneumothorax. IMPRESSION: Possible early developing infiltrate in the right midlung. Recommend a two-view chest for better evaluation. Finalized by Brad Snyder MD on 04/01/2025 12:49 PM Procedure Note Brad Snyder MD - 04/01/2025 XR CHEST 1 VW: 04/01/2025 12:38 PM Clinical: Fever and tachycardia Upright portable chest obtained. No comparison. Ill-defined asymmetric opacity overlying the right mid hemithorax. Heart size is normal. No large effusion or pneumothorax. IMPRESSION: Possible early developing infiltrate in the right midlung. Recommend atwo-view chest for better evaluation. Finalized by Brad Snyder MD on 04/01/2025 12:49 PM Authorizing ProviderResult TypeResult StatusStacy Anibal FLORES DIAGNOSTIC IMAGING ORDERABLESFinal Result * Extra Urine (04/01/2025 11:38 AM EDT)ComponentValueRef RangeTest Method Analysis TimePerformed AtPathologist SignatureExtra TubeAuto Resulted 04/01/2025 4:02 PM EDTBNORTH ARKANSAS REGIONAL MEDICAL CENTERpecimen (Source)Anatomical Location / LateralityCollection Method / VolumeCollection TimeReceived Time UrineUrine specimen collection, clean catch / Phmsnbh5504/01/2025 11:38 AM EDT 04/01/2025 3:48 PM EDT Narrative Authorizing ProviderResult TypeResult StatusStacy Anibal SLADE ORDERABLESFinal ResultPerforming OrganizationAddressCity/State/ZIP CodePhone Number [facility] [address] [place], [place] [address], * (ABNORMAL) Drug Screen, Urine (04/01/2025 11:38 AM EDT)ComponentValueRef Range Test MethodAnalysis TimePerformed AtPathologist SignatureAMPHETAMINE/METHAMP PsarsdbdOsofuhwo98/07/2025 4:12 PM [facility]: AMPH/METH screening cut off = 1000 ng/mLCOCAINE METABOLITEPositive(A)Negative 04/01/2025 4:12 PM [facility]Comment:Cocaine screening cut off value = 300 ng/rPERRDSQNClfemhyuMnohrfrd39/07/2025 4:12 PM [facility]Comment:Ecstasy screening cut off value = 500 ng/mLMETHADONE RpnhxgdpMyobqgrq90/07/2025 4:12 PM [facility]Comment: Methadone screening cut off value = 300 ng/mL.OPIATESPositive(A)Negative 04/01/2025 4:12 PM [facility]: Opiates screening cut off value = 300 ng/mL This test is used for the detection of codeine, hydrocodone (>1000 ng/mL), morphine and hydromorphone (>900 ng/mL) in urine. HMGUOLPJLJnyphixiMnhxzhak03/07/2025 4:12 PM [facility] Comment: Oxycodone screening cut off value = 300 ng/mL This test is used for the detection of oxycodone and oxymorphone in urine. AUAZTEQLASESLFqqbpwezTbcnwacw94/07/2025 4:12 PM [facility] Comment:Phencyclidine screening cut off value = 25 ng/mLCANNABINOIDSNegative Iqzkkzzi09/07/2025 4:12 PM [facility]Comment: Cannabinoids/THC screening cut off value = 50 ng/mLUrine BarbituratesNegative Fmxllgmd11/07/2025 4:12 PM [facility]Comment:Barbiturates screening cut off value = 200 ng/gWYHTWZZALXWOIMMRNilxitrjIinvbksd52/07/2025 4:12 PM [facility]Comment:Benzodiazepines screening cut off value = 200 ng/mLSpecimen (Source)Anatomical Location / LateralityCollection Method / VolumeCollection TimeReceived TimeUrineUrine specimen collection, clean catch / Rkdezfk91/02/2025 11:38 AM EDT04/01/2025 3:48 PM EDT Narrative [facility] - 04/01/2025 4:12 PM EDT Confirmation available upon request. Authorizing ProviderResult TypeResult StatusSakina Huerta APRN-CNPURINE ORDERABLESFinal ResultPerforming OrganizationAddressCity/State/ZIP CodePhone Number [address] [place] [address], [place] * PST TOP (04/01/2025 10:43 AM EDT)ComponentValueRef RangeTest MethodAnalysis TimePerformed AtPathologist SignatureExtra TubeAuto Lktvmwox92/07/2025 12:02 PM [facility] (Source)Anatomical Location / LateralityCollection Method / VolumeCollection TimeReceived TimeBloodVenous blood / Cvvpgya4504/01/2025 10:43 AM EDT04/01/2025 10:50 AM EDT Narrative Authorizing ProviderResult TypeResult StatusStshelia Barnett MDLAB BLOOD ORDERABLES Final ResultPerforming OrganizationAddressCity/State/ZIP CodePhone Number [address] [place] [address], [place] * (ABNORMAL) Procalcitonin (04/01/2025 10:43 AM EDT)ComponentValueRef RangeTest MethodAnalysis TimePerformed AtPathologist SignaturePROCALCITONIN0.33(H)<0.05 ng/mL04/01/2025 11:22 AM [facility] (Source) Anatomical Location / LateralityCollection Method / VolumeCollection Time Received TimeBloodVenous blood / Ssmmxht2004/01/2025 10:43 AM EDT04/01/2025 10:50 AM EDT Narrative [facility] - 04/01/2025 11:22 AM EDT <0.50 ng/mL - Low risk of severe sepsis and/or septic shock. <2.00 ng/mL - Recommend retesting within 6-24 hours. >2.00 ng/mL - High risk of sepsis and/or septic shock. Authorizing ProviderResult TypeResult StatusStshelia Barnett MDLAB BLOOD ORDERABLES Final ResultPerforming OrganizationAddressCity/State/ZIP CodePhone Number [place] [address] [place] [address], [place] * SST TOP (04/01/2025 10:43 AM EDT)ComponentValueRef RangeTest MethodAnalysis TimePerformed AtPathologist SignatureExtra TubeAuto Vhrcmvqs60/07/2025 12:02 PM [facility] (Source)Anatomical Location / LateralityCollection Method / VolumeCollection TimeReceived TimeBloodVenous blood / Dkcpkkf4904/01/2025 10:43 AM EDT04/01/2025 10:48 AM EDT Narrative Authorizing ProviderResult TypeResult StatusDougie Espana [facility] BLOOD ORDERABLESFinal ResultPerforming OrganizationAddressCity/State/ZIP CodePhone Number [address] [place] [address], [place] * Light Blue Top (04/01/2025 10:43 AM EDT)ComponentValueRef RangeTest Method Analysis TimePerformed AtPathologist SignatureExtra TubeAuto Resulted 04/01/2025 12:02 PM [facility] (Source)Anatomical Location / LateralityCollection Method / VolumeCollection TimeReceived Time BloodVenous blood / Hsxlzay1604/01/2025 10:43 AM EDT04/01/2025 10:48 AM EDT Narrative Authorizing ProviderResult TypeResult StatusDougie Espana [facility] BLOOD ORDERABLESFinal ResultPerforming OrganizationAddressCity/State/ZIP CodePhone Number [address] [place] [address], [place] * (ABNORMAL) BLOOD CULTURE IDENTIFICATION PANEL (04/01/2025 10:40 AM EDT) ComponentValueRef RangeTest MethodAnalysis TimePerformed AtPathologist SignatureStaphylococcus epidermidis PCRDetected(A)Not Kvafrtbq18/08/2025 9:[address] [facility]ATORYmecA/C gene PCRDetected (Methicillin Resistance)(A)Not Hytfieia91/08/2025 9:[address] [facility]ATORYSpecimen (Source)Anatomical Location / LateralityCollection Method / VolumeCollection TimeReceived TimeBloodVenous blood / UnknownVenipuncture / Nasfege5904/01/2025 10:40 AM EDT04/01/2025 10:52 AM EDT Narrative Authorizing ProviderResult TypeResult StatusStacy Anibal MDMICROBIOLOGY - GENERAL ORDERABLESFinal ResultPerforming OrganizationAddressCity/State/ZIP CodePhone Number [facility] [address] [place] [address], [place] [phone] * Lactate w/ Reflex (04/01/2025 10:40 AM EDT)ComponentValueRef RangeTest Method Analysis TimePerformed AtPathologist SignatureLACTATE W/REFLEX0.60.4 - 2.0 mmol/L04/01/2025 11:11 AM EDTBNORTH ARKANSAS REGIONAL MEDICAL CENTERpecimen (Source) Anatomical Location / LateralityCollection Method / VolumeCollection Time Received TimeBloodVenous blood / Mcobrfr2804/01/2025 10:40 AM EDT04/01/2025 10:48 AM EDT Narrative [facility] - 04/01/2025 11:11 AM EDT Result did not trigger repeat Lactate, re-order if needed. Authorizing ProviderResult TypeResult StatusStacy Anibal MDLAB BLOOD ORDERABLES Final ResultPerforming OrganizationAddressCity/State/ZIP CodePhone Number [facility] [address] [place] [address], * (ABNORMAL) Blood culture, peripheral #2 (04/01/2025 10:40 AM EDT) Only the most recent of2 resultswithin the time period is included. ComponentValueRef RangeTest MethodAnalysis TimePerformed AtPathologist Signature CULTURE RESULTSStaphylococcus epidermidis(A)04/03/2025 10:[address] [facility]ATORYCULTURE RESULTSStaphylococcus, coagulase negative(A) 04/03/2025 10:[address] [facility]ORATORYComment:Not S. lugdunensisCULTURE RESULTSStaphylococcus, coagulase negative(A)04/03/2025 10:[address] [facility]ATORYComment: Not S. lugdunensis Variant GRAM STAINGram positive cocci in clusters(A)04/03/2025 10:[address] [facility]ATORYSpecimen (Source)Anatomical Location / Laterality Collection Method / VolumeCollection TimeReceived TimeBloodVenous blood / UnknownVenipuncture / Ewipowf9304/01/2025 10:40 AM EDT04/01/2025 10:52 AM EDT Narrative [facility] - 04/03/2025 10:49 AM EDT Possible Collection Contamination Single positive culture is of uncertain clinical significance. ??Suggest continued monitoring of remaining blood cultures. ??Contact microbiology if further information is required. Authorizing ProviderResult TypeResult StatusStacy Dybas MDMICROBIOLOGY - GENERAL ORDERABLESFinal ResultPerforming OrganizationAddressCity/State/ZIP CodePhone Number [facility] [address] [place] [address], [place] [phone] * Serum (04/01/2025 10:40 AM EDT)ComponentValueRef RangeTest Method Analysis TimePerformed AtPathologist SignatureSERUM PREGNANCYNegativeNegative 04/01/2025 11:44 AM [facility]USpecimen (Source)Anatomical Location / LateralityCollection Method / VolumeCollection TimeReceived Time BloodVenous blood / Gworlft7604/01/2025 10:40 AM EDT04/01/2025 10:48 AM EDT Narrative Authorizing ProviderResult TypeResult StatusStacy Anibal MDLAB BLOOD ORDERABLES Final ResultPerforming OrganizationAddressCity/State/ZIP CodePhone Number [facility] [address] [place] [address], * SARS/FLU A+B/RSV by NAAT/Molecular (M4RT Collection Tube) (04/01/2025 9:32 AM EDT)ComponentValueRef RangeTest MethodAnalysis TimePerformed AtPathologist SignatureFLU A MAOKtgyqtdwEaqqkpfx52/07/2025 10:25 AM [facility]ITALFLU B JCBVynmnfhaTcvafxxk23/07/2025 10:25 AM [facility]OSPITALRSV BY KGLHytwmorkYdgmgsjj58/07/2025 10:25 AM [facility]USARS COV 2 BY PCRNot DetectedNot Jbixhvwx98/07/2025 10:25 AM [facility]USpecimen (Source)Anatomical Location / Laterality Collection Method / VolumeCollection TimeReceived TimeSwabNasopharyngeal structure / Aghunxu7104/01/2025 9:32 AM EDT04/01/2025 9:37 AM EDT Narrative [facility] - 04/01/2025 10:25 AM EDT The Xpert Xpress SARS-CoV-2/Flu/RSV Plus test is a rapid, multiplexed real-time RT-PCR test intended for the simultaneous qualitative detection and differentiation of SARS-CoV-2, influenza A, influenza B and respiratory syncytial virus (RSV) viral RNA from individuals suspected of respiratory viral infection consistent with COVID-19 by Their healthcare provider. This test has not been validated in asymptomatic patients. The Xpert Xpress SARS-CoV-2 test is intended for use by qualified and trained operators who are performing tests using either [employer] or [employer] systems and is limited to laboratories that meet the CLIA requirements to perform high and moderate complexity tests. The Xpert Xpress SARS-CoV-2/Flu/RSV Plus is only for use under the Food and Drug Administration's Emergency Use Authorization. Results are for the simultaneous detection and differentiation of SARS-CoV-2, influenza A, influenza B and RSV nucleic acids in clinical specimens. SARS-CoV-2, influenza A, influenza B and RSV RNA identified by this test are generally detectable in upper respiratory samples during the acute phase of infection. Positive results are Indicative of the presence of the identified virus, but do not rule out bacterial infection or co-infection with other pathogens not detected by this test. Clinical correlation with patient history and other diagnostic information is necessary to determine patient infection status. The agent detected may not be the definite cause of disease. Negative results do not preclude SARS-CoV-2, influenza A, influenza B and RSV infection and should not be used as the sole basis for treatment or other patient management decisions. Negative results must be combined with clinical observations, patient history and epidemiological information. An Invalid result may occur with specimen-associated inhibition unable to be resolved with specimen repeat. Fact Sheet for Healthcare Providers: ?? https://www.fda.gov/media/028338/download ? Fact Sheet for Patients: ?? https://www.fda.gov/media/620839/download ?? Authorizing ProviderResult TypeResult StatusStacy Dybas MDMICROBIOLOGY - GENERAL ORDERABLESFinal ResultPerforming OrganizationAddressCity/State/ZIP CodePhone Number [facility] [address] [place] [address], from Last 3 Months Insurance Advance Directives * Full Code (Latest Code Status on File) Date ActivatedDate InactivatedComments04/01/2025 1:48 PM04/03/2025 2:17 PM Care Teams Team MemberRelationshipSpecialtyStart DateEnd Date Silviano Champion [address] [address] PCP - GeneralFamily Medicine04/01/25
--- OUTSIDE RECORDS SUMMARY | 2025-06-27 07:50 | XMS_ITS | Clinical Summary ---
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 Name Role Phone Silviano Champion MD Primary Care Provider [phone] Allergies No known active allergies Medications MedicationSigDispense QuantityRefillsLast FilledStart DateEnd DateStatus VIVITROL 380 MG injection 09/05/2018Active gabapentin (NEURONTIN) 300 MG capsule TAKE 1 CAPSULE BY MOUTH THREE TIMES [id number] ondansetron (ZOFRAN-ODT) 4 MG disintegrating tablet Take 1 tablet by mouth 3 times daily as needed for Nausea or Vomiting 8 tablet 5Active Active Problems ProblemNoted DateDiagnosed DateHeroin abuse04/16/2018Acute upper respiratory uefcuvgyf08/01/6860Moujbvllzd16/01/2018Acute septic pulmonary oiwqwwcr70/23/2016 Uvrzrbxacw36/09/2015Chronic back pain08/06/20123400Avrxnxd67/12/2012Hemangioma of skin and subcutaneous hlqkyp6105/07/2007Dermatitis yqbnwgukkft88/15/2007[place] npgvxbz7208/26/1991Hepatitis CChronic low back pain Resolved Problems ProblemNoted DateDiagnosed DateResolved NjcrLkhdb42Substance abuse04/16/2018 Encounters DateTypeDepartmentCare VnsxYqbgiqkzzrc71/18/2025 1:12 AM EDT - 04/12/2025 11:59 PM EDTHospital Encounter [address] [address] Discharge Disposition: Home or Self Care04/09/2025 12:22 AM EDT - 04/09/2025 11:59 PM EDTHospital Encounter [facility] [id number] Discharge Disposition: Home or Self Care04/04/2025 9:43 PM EDT - 04/05/2025 1:[facility] [address] [facility] [address] [place] [phone] David Sood MD Pneumonia of right middle lobe due to infectious organism (Primary Dx) Discharge Disposition: Home or Self Care04/04/20255217Fzosdk41/03/2025 10:54 AM EDT - 03/28/2025 1:[address] [facility] [address] [place] [address] Carlos Li MD Nausea and vomiting, unspecified vomiting type (Primary Dx); Acute cystitis with hematuria Discharge Disposition: Home or Self Care03/28/2025Travelfrom Last 3 Months Immunizations ImmunizationAdministration DatesNext DueInfluenza, AFLURIA (age 3 y+), FLUZONE, (age 6 mo+), Quadv MDV, 0.5mL06/26/2016,07/05/2015Pneumococcal, PPSV23, PNEUMOVAX 23, (age 2y+), SC/IM, 0.5mL10/03/2018TDaP, ADACEL (age 10y-64y), BOOSTRIX (age 10y+), IM, 0.5mL10/21/2015 Family History Medical HistoryRelationNameCommentsCancerFatherDepressionFatherCancerMother DepressionMotherCancerOther 1AuntCancerOther 2UncleRelationNameStatusComments FatherMotherOther 1AuntOther 2Uncle Social History Tobacco UseTypesPacks/DayYears UsedDateSmoking Tobacco: Every HsfHvmjnuklmi91 E-CigarettesSmokeless Tobacco: Never Tobacco Cessation:Ready to Q uit: Not Asked; Counseling Given: Not Answered Alcohol UseStandard Drinks/WeekCommentsNot Currently0 (1 standard drink = 0.6 oz pure alcohol)quit 2011PHQ-2AnswerDate RecordedPHQ-2 Xjvkr582AUDIT-C AnswerDate RecordedQ1: How often do you have a drink containing alcohol?Never 04/04/2025Q2: How many drinks containing alcohol do you have on a typical day when you are drinking?Patient does not drink04/04/2025Q3: How often do you have six or more drinks on one occasion?Never04/04/2025Interpersonal Safety Domain Source: IP Abuse ScreeningAnswerDate RecordedPhysical rdwkdWzutow87/10/2025 Verbal defkrHjzqzn62/10/2025Emotional wucqrGkpubu05/10/2025Financial abuseDenies 04/04/2025Sexual keiyvFdiqqr79/10/2025CommentsNoSex and Gender InformationValueDate RecordedSex Assigned at BirthNot on fileLegal SexFemale 10/07/2012 12:45 AM ESTGender IdentityNot on fileSexual OrientationNot on file Last Filed Vital Signs Vital SignReadingTime TakenCommentsBlood Ynfdysxm675/0832004/04/2025 9:58 PM EDT Ptbje875704/04/2025 9:48 PM EFZJjadlyfajvt51.2 ??C (99 ??F)04/04/2025 9:48 PM EDT Respiratory Qlnh401204/04/2025 9:48 PM EDTOxygen Gyonikhfwa58%04/05/2025 12:10 AM EDTInhaled Oxygen Concentration--Mtnudw87 kg (130 lb)04/04/2025 9:48 PM EDT Tqadhr305.3 cm (5' 3.5 )04/04/2025 9:48 PM EDTBody Mass Index22.67004/04/2025 9:48 PM EDT Plan of Treatment Health MaintenanceDue DateLast DoneCommentsPolio vaccine (4 of 4 - 4-dose series), 06/21/1988, 05/02/1988Depression Monitoring 1999Varicella vaccine (1 of 2 - 13+ 2-dose series)11/28/2000Hepatitis B vaccine (1 of 3 - 19+ 3-dose series)11/28/2006HPV (without or with Pap) 11/28/2017Cervical cancer ntveko4705/26/2018Pap smear Pneumococcal 0-49 years Vaccine (2 of 2 - PCV)Flu vaccine (#1)5109/03/2015, 06/26/2016, 07/05/2015COVID-19 Vaccine (1 - season)2025DTaP/Tdap/Td vaccine (6 - Td or Tdap)6010/21/2015, 06/21/1989, 08/24/1988, Additional history existsHib iswzilsCzyilvliy50/27/1989 HIV psfwkyDfmblgmyp06/16/2020, 01/04/2020, 05/26/2015HPV vaccine (No Doses Required)CompletedHepatitis A vaccineAged OutNo longer eligible based on patient's age to complete this topicMeningococcal (ACWY) vaccineAged OutNo longer eligible based on patient's age to complete this topicMeningococcal B vaccineAged OutNo longer eligible based on patient's age to complete this topic Procedures Procedure NamePriorityDate/TimeAssociated DiagnosisCommentsPREGNANCY, URINE Add-On04/04/2025 10:43 PM EDT URINALYSIS WITH REFLEX TO CULTUREStat [employer] Label print04/04/2025 10:42 PM EDT XR CHEST (2 VW)STAT04/04/2025 10:17 PM EDT MICROSCOPIC DQOSFKJMNBXahlkci74/03/2025 11:54 AM EDT URINALYSIS WITH REFLEX TO CULTUREStat [employer] Label print03/28/2025 11:54 AM EDT CULTURE, CJECVDkkyitr22/03/2025 11:54 AM EDT HCG, SERUM, QUALITATIVEStat [employer] Label print03/28/2025 11:06 AM EDT COMPREHENSIVE METABOLIC PANELStat [employer] Label print08/10/2024 11:06 AM EDT CBC WITH AUTO DIFFERENTIALStat [employer] Label print03/28/2025 11:06 AM EDT HIV-1,2 COMBO AG/AB BY MALLORY, REFLEXIVE TLQWCMgmdtin06/16/2020 5:34 PM EDT PAP VNXKUVjlwkzs73/01/2015 1:36 PM EDT Encounter for supervision of normal first in first trimester from Last 3 Months or Most Recently Relevant to Health Maintenance Results * , Urine (04/04/2025 10:43 PM EDT)ComponentValueRef RangeTest Method Analysis TimePerformed AtPathologist SignaturePregnancy, UrineNEGATIVENEGATIVE 04/04/2025 10:43 PM EDTMERCY LABORATORIESComment: Specimens with hCG levels near the threshold of the test (25 mIU/mL) may give a negative or indeterminate result. ??In such cases, another test should be performed with a new specimen in 48-72 hours. ??If early is suspected clinically in this setting, correlation with quantitative serum b-hCG level is suggested. Specimen (Source)Anatomical Location / LateralityCollection Method / Volume Collection TimeReceived TimeUrine (Urine)04/04/2025 10:43 PM EDT04/04/2025 10:48 PM EDT Narrative Authorizing ProviderResult TypeResult StatusAnmotiffanie SLADE ORDERABLESFinal ResultPerforming OrganizationAddressCity/State/ZIP CodePhone Number [phone] [place] [address], [facility] [[email or web address]] [phone] * Urinalysis with Reflex to Culture (04/04/2025 10:42 PM EDT) Only the most recent of2 resultswithin the time period is included. ComponentValueRef RangeTest MethodAnalysis TimePerformed AtPathologist Signature Color, OJAgimvnLbnpsa77/10/2025 10:42 PM EDTMERCY LABORATORIESTurbidity UAClear Clear04/04/2025 10:42 PM EDTMERCY LABORATORIESGlucose, UrNEGATIVENEGATIVE mg/dL 04/04/2025 10:42 PM EDTMERCY LABORATORIESBilirubin, UrineNEGATIVENEGATIVE 04/04/2025 10:42 PM EDTMERCY LABORATORIESKetones, UrineNEGATIVENEGATIVE mg/dL 04/04/2025 10:42 PM EDTMERCY LABORATORIESSpecific Carpio, UA1.0081.005 - 1.030 04/04/2025 10:42 PM EDTMERCY LABORATORIESUrine CgqMEANLZDBXDVECEDI84/10/2025 10:42 PM EDTMERCY LABORATORIESpH, Urine7.05.0 - 8.008 10:42 PM EDTMERCY LABORATORIESProtein, UANEGATIVENEGATIVE mg/dL04/04/2025 10:42 PM EDTMERCY LABORATORIESUrobilinogen, UrineNormal0.0 - 1.0 EU/dL04/04/2025 10:42 PM EDTMERCY LABORATORIESNitrite, BprnrLICYBACNYZRGYSDY01/10/2025 10:42 PM EDTMERCY LABORATORIESLeukocyte Esterase, EiufjJGCRRMAGWDCNSVIF06/10/2025 10:42 PM EDT [facility] CENTERCommentMicroscopic exam not performed based on chemical results unless requested in original order.04/04/2025 10:42 PM EDTMERCY LABORATORIESSpecimen (Source)Anatomical Location / LateralityCollection Method / VolumeCollection TimeReceived TrccHwvym78/10/2025 10:42 PM EDT04/04/2025 10:47 PM EDT Narrative Authorizing ProviderResult TypeResult StatusAnmol Prieto SLADE ORDERABLESFinal ResultPerforming OrganizationAddressCity/State/ZIP CodePhone Number [facility] [employer] [address] [place] [address], [facility] [[email or web address]] [phone] * XR CHEST (2 VW) (04/04/2025 10:17 PM EDT)Anatomical RegionLateralityModality ChestComputed RadiographySpecimen (Source)Anatomical Location / Laterality Collection Method / VolumeCollection TimeReceived CoafJiduu63/10/2025 11:39 PM EDT Impressions 04/04/2025 11:40 PM EDT No acute cardiopulmonary finding. Narrative 04/04/2025 11:40 PM EDT EXAMINATION: TWO XRAY VIEWS OF THE CHEST 04/04/2025 7:17 pm COMPARISON: None. HISTORY: ORDERING SYSTEM PROVIDED HISTORY: concern for pneumonia, h/o drug use TECHNOLOGIST PROVIDED HISTORY: concern for pneumonia, h/o drug use FINDINGS: No focal airspace consolidation. Costophrenic angles are sharp. No pneumothorax. Cardiomediastinal silhouette is not enlarged. Visualized aorta is unremarkable. No acute osseous abnormality. Procedure Note Aline Hughes MD - 04/04/2025 EXAMINATION: TWO XRAY VIEWS OF THE CHEST 04/04/2025 7:17 pm COMPARISON: None. HISTORY: ORDERING SYSTEM PROVIDED HISTORY: concern for pneumonia, h/o drug use TECHNOLOGIST PROVIDED HISTORY: concern for pneumonia, h/o drug use FINDINGS: No focal airspace consolidation. Costophrenic angles are sharp. No pneumothorax. Cardiomediastinal silhouette is not enlarged. Visualized aorta is unremarkable. No acute osseous abnormality. IMPRESSION: No acute cardiopulmonary finding. Authorizing ProviderResult TypeResult StatusTimothy FLORES DIAGNOSTIC IMAGING ORDERABLESFinal Result * Microscopic Urinalysis (03/28/2025 11:54 AM EDT)ComponentValueRef RangeTest MethodAnalysis TimePerformed AtPathologist SignatureWBC, UA50 TO 1000 - 5 /HPF 03/28/2025 11:54 AM EDTMERCY LABORATORIESRBC, UA50 TO 1000 - 2 /HPF03/28/2025 11:54 AM EDTMERCY LABORATORIESCasts UA2 TO 50 - 2 /LPF03/28/2025 11:54 AM EDT [facility] LABORATORIESCasts UAHYALINE0 - 2 /LPF03/28/2025 11:54 AM EDTMERCY LABORATORIESEpithelial Cells, UA2 TO 50 - 5 /HPF03/28/2025 11:54 AM EDTMERCY LABORATORIESMucus, UA1+03/28/2025 11:54 AM EDTMERCY LABORATORIESSpecimen (Source)Anatomical Location / LateralityCollection Method / VolumeCollection TimeReceived Time03/28/2025 11:54 AM EDT03/28/2025 11:59 AM EDT Narrative Authorizing ProviderResult TypeResult Nando CORDOVA ORDERABLES Final ResultPerforming OrganizationAddressCity/State/ZIP CodePhone Number [address] [place] [address], [facility] [[email or web address]] [phone] * (ABNORMAL) Culture, Urine (03/28/2025 11:54 AM EDT)ComponentValueRef RangeTest MethodAnalysis TimePerformed AtPathologist SignatureSpecimen Description.URINE 03/28/2025 11:54 AM EDTMERCY LABORATORIESCultureESCHERICHIA COLI 50 TO 100,000 CFU/ML(A)03/28/2025 11:54 AM EDTMERCY LABORATORIESSpecimen (Source)Anatomical Location / LateralityCollection Method / VolumeCollection TimeReceived Time Urine03/28/2025 11:54 AM EDT03/28/2025 12:36 PM EDT Narrative OrganismAntibioticMethodSusceptibilityEscherichia coliampicillinBACTERIAL SUSCEPTIBILITY PANEL ARELIS >=32: Resistant Escherichia coliceFAZolin (systemic)BACTERIAL SUSCEPTIBILITY PANEL ARELIS 8: Resistant Escherichia coliceFAZolin (urine)BACTERIAL SUSCEPTIBILITY PANEL ARELIS 8: Sensitive Escherichia coliceFAZolin (urine)BACTERIAL SUSCEPTIBILITY PANEL ARELIS Urine specific interpretations are for uncomplicated UTIs only.: Sensitive Escherichia colicefTRIAXoneBACTERIAL SUSCEPTIBILITY PANEL ARELIS <=0.25: Sensitive Escherichia coligentamicinBACTERIAL SUSCEPTIBILITY PANEL ARELIS <=1: Sensitive Escherichia colilevofloxacinBACTERIAL SUSCEPTIBILITY PANEL ARELIS <=0.12: Sensitive Escherichia colinitrofurantoinBACTERIAL SUSCEPTIBILITY PANEL ARELIS <=16: Sensitive Escherichia colipiperacillin-tazobactamBACTERIAL SUSCEPTIBILITY PANEL ARELIS <=4: Sensitive Escherichia colitrimethoprim-sulfamethoxazoleBACTERIAL SUSCEPTIBILITY PANEL ARELIS >=320: Resistant Authorizing ProviderResult TypeResult StatusGregory P Guillermo MDMICROBIOLOGY - GENERAL ORDERABLESFinal ResultPerforming OrganizationAddressCity/State/ZIP Code Phone Number [employer] [facility] [place] [address], [facility] [[email or web address]] [phone] * (ABNORMAL) CBC with Auto Differential (03/28/2025 11:06 AM EDT)ComponentValue Ref RangeTest MethodAnalysis TimePerformed AtPathologist SpyiwshakJEE66.1(H) 3.5 - 11.3 k/uL03/28/2025 11:06 AM EDTMERCY LABORATORIESRBC4.193.95 - 5.11 m/uL03/28/2025 11:06 AM EDTMERCY EHRRTJHJAQZJHujkejyxlm36.511.9 - 15.1 g/dL 03/28/2025 11:06 AM EDTMERCY KVZLYNJIOACLRmekmkfgpk33.836.3 - 47.1 %03/28/2025 11:06 AM EDTMERCY WUEGBXNPOTDLFGF34.282.6 - 102.9 fL03/28/2025 11:06 AM EDT [facility] LUMQMZYPICLNLXF89.825.2 - 33.5 pg03/28/2025 11:06 AM EDTMERCY QDDKDKGONLDTEVVQ44.128.4 - 34.8 g/dL03/28/2025 11:06 AM EDTMERCY LABORATORIES RDW12.111.8 - 14.4 %03/28/2025 11:06 AM EDTMERCY TXAUHHGFEDWIWtuwplogy996497 - 453 k/03/28/2025 11:06 AM EDTMERCY LQTWSAAQXMGDUMZ48.08.1 - 13.5 fL 03/28/2025 11:06 AM EDTMERCY LABORATORIESNRBC Automated0.00.0 per 100 WBC 03/28/2025 11:06 AM EDTMERCY LABORATORIESImmature Granulocytes %1(H)0 % 03/28/2025 11:06 AM EDTMERCY LABORATORIESNeutrophils %73(H)36 - 65 %03/28/2025 11:06 AM EDTMERCY LABORATORIESLymphocytes %15(L)24 - 43 %03/28/2025 11:06 AM EDTMERCY LABORATORIESMonocytes %103 - 12 %03/28/2025 11:06 AM EDTMERCY LABORATORIESEosinophils %11 - 4 %03/28/2025 11:06 AM EDTMERCY LABORATORIES Basophils %00 - 2 %03/28/2025 11:06 AM EDTMERCY LABORATORIESImmature Granulocytes Absolute0.190.00 - 0.30 k/03/28/2025 11:06 AM EDTMERCY LABORATORIESNeutrophils Gvrdtdmb90.94(H)1.50 - 8.10 k/03/28/2025 11:06 AM EDTMERCY LABORATORIESLymphocytes Absolute2.871.10 - 3.70 k/03/28/2025 11:06 AM EDTMERCY LABORATORIESMonocytes Absolute1.91(H)0.10 - 1.20 k/uL03/28/2025 11:06 AM EDTMERCY LABORATORIESEosinophils Absolute0.190.00 - 0.44 k/uL 03/28/2025 11:06 AM EDTMERCY LABORATORIESBasophils Absolute0.000.00 - 0.20 k/uL03/28/2025 11:06 AM EDTMERCY QPEKRORFYFIYXgnstfdmwpMtxkgv66/03/2025 11:06 AM EDTMERCY LABORATORIESSpecimen (Source)Anatomical Location / Laterality Collection Method / VolumeCollection TimeReceived TimeBloodBLOOD SPECIMEN / Gqqmypz6303/28/2025 11:06 AM EDT03/28/2025 11:11 AM EDT Narrative Authorizing ProviderResult TypeResult StatusSouleymane Kaur DOHEMATOLOGY ORDERABLESFinal ResultPerforming OrganizationAddressCity/State/[facility] CodePhone Number [facility] HOSPITALWaikoloa Steak & [facility]afood [address] [place] [address], [facility] [[email or web address]] [phone] * HCG Qualitative, Serum (03/28/2025 11:06 AM EDT)ComponentValueRef RangeTest MethodAnalysis TimePerformed AtPathologist SignaturePreg, SerumNEGATIVE LCBXBQHO89/03/2025 11:06 AM EDTMERCMy Team Zone LABORATORIESComment: Specimens with hCG levels near the threshold of the test (25 mIU/mL) may give a negative or indeterminate result. ??In such cases, another test should be performed with a new specimen in 48-72 hours. ??If early is suspected clinically in this setting, correlation with quantitative serum b-hCG level is suggested. ? [facility] has confirmed the use of plasma for this test. This has not been cleared or approved by the U.S. Food and Drug Administration. ??The FDA has determined that such clearance is not necessary. Specimen (Source)Anatomical Location / LateralityCollection Method / Volume Collection TimeReceived TimeBloodBLOOD SPECIMEN / Gntgxvl2503/28/2025 11:06 AM EDT 03/28/2025 11:11 AM EDT Narrative Authorizing ProviderResult TypeResult Nando Kaur DOCHEMISTRY ORDERABLESFinal ResultPerforming OrganizationAddressCity/State/ZIP CodePhone Number JAYASHREE MARTÍNEZ [address] [place] [address], [facility] [[email or web address]] [phone] * (ABNORMAL) CMP (03/28/2025 11:06 AM EDT)ComponentValueRef RangeTest Method Analysis TimePerformed AtPathologist KpejdadhtSmsrde471(L)136 - 145 mmol/L 03/28/2025 11:06 AM EDTMERCY LABORATORIESPotassium3.93.7 - 5.3 mmol/L 03/28/2025 11:06 AM EDTMERCY KUZUGQWVUTYFGqlsycmr11315 - 107 mmol/L03/28/2025 11:06 AM EDTMERCY MLWXMXWYOGCQXX94968 - 31 mmol/L03/28/2025 11:06 AM EDTMERCY LABORATORIESAnion Gzs555 - 16 mmol/L03/28/2025 11:06 AM EDTMERCY LABORATORIES Zkocgwq6236 - 99 mg/dL03/28/2025 11:06 AM EDTMERCY CPQIPSDBGQGOECN889 - 20 mg/dL03/28/2025 11:06 AM EDTMERCY LABORATORIESCreatinine0.60.6 - 0.9 mg/dL 03/28/2025 11:06 AM EDTMERCY LABORATORIESEst, Glom Filt Rate>90>60 mL/min/1.51z51103/28/2025 11:06 AM EDTMERCY LABORATORIESComment: ? These results are not intended for use in patients <18 years of age. ? eGFR results are calculated without a race factor using the 2020 CKD-EPI equation. Careful clinical correlation is recommended, particularly when comparing to results calculated using previous equations. The CKD-EPI equation is less accurate in patients with extremes of muscle mass, extra-renal metabolism of creatine, excessive creatine ingestion, or following therapy that affects renal tubular secretion. Calcium9.68.6 - 10.4 mg/dL03/28/2025 11:06 AM EDTMERCY LABORATORIESTotal Protein 8.16.6 - 8.7 g/dL03/28/2025 11:06 AM EDTMERCY LABORATORIESAlbumin4.33.5 - 5.2 g/dL03/28/2025 11:06 AM EDTMERCY LABORATORIESAlbumin/Globulin Ratio1.11.0 - 2.5 03/28/2025 11:06 AM EDTMUC [facility] LABORATORIESTotal Bilirubin0.70.0 - 1.2 mg/dL 03/28/2025 11:06 AM EDACCESS [facility] LABORATORIESAlkaline Blbbufhnjou8094 - 104 U/L 03/28/2025 11:06 AM EDACCESS [facility] PUSQKVBUWHTPKEC1650 - 35 U/L03/28/2025 11:06 AM EDT [facility] CENTERATCEZLLEINZUDKC6840 - 35 U/L03/28/2025 11:06 AM EDACCESS [facility] LABORATORIES Specimen (Source)Anatomical Location / LateralityCollection Method / Volume Collection TimeReceived TimeBloodBLOOD SPECIMEN / Ainsqyn8003/28/2025 11:06 AM EDT 03/28/2025 11:11 AM EDT Narrative Authorizing ProviderResult TypeResult StatusGimaryuri Kaur DOCHEMISTRY ORDERABLESFinal ResultPerforming OrganizationAddressCity/State/ZIP CodePhone Number [facility] [address] [phone] * HIV-1,2 Combo Ag/Ab By MALLORY, Reflexive Panel (02/09/2020 5:34 PM EDT)Component ValueRef RangeTest MethodAnalysis TimePerformed AtPathologist SignatureHIV 1,2 Combo Antigen/WuwvaoayNjzyuhgaMnfkuhox86/19/2020 11:18 AM EDTARUP LABORATORY Comment: The specimen was non-reactive for HIV-1 and HIV-2 antibodies, and p24 antigen. Based on this non-reactive screen result, further reflexive testing was not indicated and was, therefore, not performed INTERPRETIVE INFORMATION: HIV-1,2 Combo Ag/Ab EIA, w/Reflex This assay should not be used for blood donor screening, associated re-entry protocols, or for screening Human Cells, Tissues, and Cellular and Tissue-Based Products (HCT/P). Performed by [facility], [address] [place] [address],[place] [address] [email or web address], Myles Jacobson MD - Lab. Director Specimen (Source)Anatomical Location / LateralityCollection Method / Volume Collection TimeReceived Time02/09/2020 5:34 PM EDT02/09/2020 8:29 PM EDT [facility] [place] [facility] - 02/12/2020 1:18 PM EDT CALL doctor ABBEY tel. [phone], fax to [phone] Authorizing ProviderResult TypeResult StatusNghia Ruffin NP IMMUNOLOGY ORDERABLESFinal ResultPerforming OrganizationAddressCity/State/ZIP CodePhone Number [facility] [address] [place] [address], [facility] [[email or web address]] [phone] [facility] [address] [phone] * PAP SMEAR (05/26/2015 1:36 PM EDT)Specimen (Source)Anatomical Location / LateralityCollection Method / VolumeCollection TimeReceived HstyToay64/01/2015 1:36 PM EDT Narrative Authorizing ProviderResult TypeResult StatusKati Pelaez MD PATHOLOGY/CYTOLOGY ORDERABLESFinal Result from Last 3 Months or Most Recently Relevant to Health Maintenance Additional Health Concerns InfectionOnset DateLast IndicatedMDRO (multi-drug resistant organism) Comment:E. Coli urine 03/2025 08/12/2024 Insurance Advance Directives * Full Code (Latest Code Status on File) Date ActivatedDate InactivatedComments12/26/2016 8:30 PM12/27/2016 4:15 PM Care Teams Team MemberRelationshipSpecialtyStart DateEnd Date Silviano Champion MD PCP - General09/26/17
[2025-06-27 07:52] LABS: SARS-CoV-2 Ag NEGATIVE (NEGATIVE)
== END 2025-06-27 07:56 | disposition home or self-care (01) ==
PROVIDERS: Emergency Provider Emergency Medicine
DX: J02.0 Streptococcal pharyngitis (principal)
CPT/HCPCS: 87804; 87811; 87880; 99283